=== PATIENT | female | born 1970 | race Caucasian/White ===

== ENCOUNTER 2024-11-04 13:06 | Outpatient (OUT) | payer BC, SELFPAY ==
--- NOTE | 2024-11-04 13:17 | XR_ITS ---
[place] [id number] Patient Name: JAVED GUZMAN MRN: [id number] date: 1970 Sex: F Assigned Patient Location: [facility] Current Patient Location: [facility] Accession/Order Number: [id number] Exam Date: 11/04/2024 13:53 Report Date: 11/04/2024 13:54 At the request of: FRAN AC DPArnulfo Procedure: XR foot LT min 3V LEFT FOOT - 3 views CLINICAL HISTORY: Chronic left foot pain COMPARISON: None FINDINGS: No focal soft tissue abnormality. Hardware fixation involving the first MTP joint without hardware complication. There is associated bony fusion. No acute bony process is noted. No bony erosions. XR/XR foot LT min 3V IMPRESSION: NO HARDWARE COMPLICATION. NO ACUTE BONY PROCESS. Impression dictated by: Chavez Velasquez Jr., D.O. 11/04/2024 1:54 PM Dictation Location: [place] [address] Electronically authenticated by: [id number] Y Date: 11/04/2024 13:54
== END 2024-11-04 13:07 | disposition home or self-care (01) ==
LOC: RAD 13:13
PROVIDERS: Visit Provider Podiatrist Foot & Ankle Surgery
DX: M79.672 Pain in left foot (principal); Z98.890 Other specified postprocedural states
CPT/HCPCS: 73630